=== PATIENT | female | born 1985 | race American Indian/Alaskan Native ===

== ENCOUNTER 2020-01-03 22:27 | Inpatient (IN) | payer MEDICAID ==
[~2020-01-03] VITALS: Ht 157.5 cm; Wt 82.5 kg
[2020-01-03 23:16] LABS: BASOPHILS % (AUTO) 0.5 % (0-1); EOSINOPHILS # (AUTO) 0.3 X10'3 (0-0.9); EOSINOPHILS % (AUTO) 3.2 % (0-6); HEMATOCRIT 40.2 % (35.0-45.0); HEMOGLOBIN 13.4 g/dl (12.0-16.0); LYMPHOCYTES % (AUTO) 35.7 % (21-51); MEAN CORPUSCULAR HEMOGLOBIN 30.8 PG (27.0-31.0); MEAN CORPUSCULAR HGB CONC 33.3 g/dL (33.0-36.5); MEAN CORPUSCULAR VOLUME 92.5 FL (78-98); MEAN PLATELET VOLUME 7.1 FL (7.4-10.4); MONOCYTES # (AUTO) 0.7 X10'3 (0-0.9); MONOCYTES % (AUTO) 7.9 % (2-12); NEUTROPHILS # (AUTO) 4.4 X10'3 (1.8-7.7); NEUTROPHILS % (AUTO) 52.7 % (42-75); PLATELET COUNT 340 X10'3 (140-440); RED BLOOD COUNT 4.35 X10'6 (4.20-5.60); RED CELL DISTRIBUTION WIDTH 13.3 % (11.5-14.5); WHITE BLOOD COUNT 8.4 X10'3 (4.5-11.0)
[2020-01-03 23:23] LABS: URINE HCG NEGATIVE (NEG)
[2020-01-03 23:27] LABS: CLARITY,URINE CLEAR (Clear); COLOR,URINE YELLOW (Yellow); GLUCOSE, URINE NEGATIVE (Neg); KETONES,URINE NEGATIVE (Neg); LEUKOCYTE ESTERASE ,URINE NEGATIVE (Neg); NITRITES, URINE NEGATIVE (Neg); OCCULT BLOOD,URINE NEGATIVE (Neg); PROTEIN,URINE TRACE mg/dl (Neg)
[2020-01-03 23:28] LABS: UA COLLECTION TYPE CLN CATCH MIDSTREAM
[2020-01-03 23:29] LABS: ACETAMINOPHEN 40.3 UG/ML (10-30); ALANINE AMINOTRANSFERASE 22 U/L (12-78); ALBUMIN 3.9 G/DL (3.4-5.0); ALKALINE PHOSPHATASE 103 IU/L (46-116); ANION GAP 9 (8-16); ASPARTATE AMINO TRANSFERASE 13 U/L (10-37); BILIRUBIN,TOTAL 1.4 MG/DL (0.1-1.0); BLOOD UREA NITROGEN 5 MG/DL (7-18); BUN/CREATININE RATIO 7.2 (6.6-38.0); CALCIUM 8.5 MG/DL (8.5-10.1); CHLORIDE 104 MMOL/L (99-107); CREATININE 0.69 MG/DL (0.40-0.90); ETHANOL < 0.010 GM/DL (0.0-0.010); GLUCOSE 95 MG/DL (70-104); POTASSIUM 3.2 MMOL/L (3.5-5.1); SODIUM 140 MMOL/L (135-145); TOTAL CARBON DIOXIDE 26.9 MMOL/L (24-32); TOTAL PROTEIN 7.9 G/DL (6.4-8.2); eGFR > 90 ML/MIN
[2020-01-03 23:29] LABS: URINE AMPHETAMINE SCREEN NEGATIVE (Neg); URINE BARBITUATE SCREEN NEGATIVE (Neg); URINE BENZODIAZEPINES SCREEN NEGATIVE (Neg); URINE CANNABINOID SCREEN NEGATIVE (Neg); URINE COCAINE SCREEN NEGATIVE (Neg); URINE METHADONE SCREEN NEGATIVE (Neg); URINE OPIATE SCREEN NEGATIVE (Neg); URINE PHENCYCLIDINE SCREEN NEGATIVE (Neg)
[2020-01-03 23:32] LABS: BACTERIA,URINE NONE SEEN /HPF (Neg); RBC,URINE 0-2 /HPF (0-2); SQUAMOUS EPITHELIAL CELL,UR MODERATE /LPF (FEW); WBC,URINE NONE SEEN /HPF (0-4)
--- NOTE | 2020-01-04 00:34 | NUR ---
CONTACTED POISON CONTROL FOR DR. UMAÑA CURRENTLY ON PHONE WITH POISON CONTROL
[2020-01-04] MEDS ORDERED: PERM60CR4 TP (00:38)
[2020-01-04] MEDS ORDERED: acetylcysteine sol. 200 MG/ML 4ml vial PO SCH (00:40)
[2020-01-04] MEDS ORDERED: acetylcysteine sol. 200 MG/ML 4ml vial PO ONE (00:40)
[2020-01-04] MEDS ORDERED: acetylcysteine 200mg/ml 30ml oral solution (vial) MC SCH (01:00)
[2020-01-04] MEDS ORDERED: acetaminophen 325mg tablet PO PRN ×2 (01:20)
[2020-01-04] MEDS ORDERED: metoclopramide 5 mg/ml inj IV PRN (01:20)
[2020-01-04] MEDS ORDERED: mag hydrox/Alum hydrox/simeth 30ml oral suspension PO PRN (01:20)
[2020-01-04] MEDS ORDERED: bisacodyl 10mg suppository rectal RC PRN (01:20)
[2020-01-04] MEDS ORDERED: ondansetron/PF 4mg/2ml inj IV PRN (01:20)
[2020-01-04] MEDS ORDERED: magnesium hydroxide 30ml (MOM) UD suspension PO PRN (01:20)
[2020-01-04] MEDS: normal saline 1000ml 1,000 ML IV SCH ×3 (01:55→23:32)
[2020-01-04 02:27] LABS: PARTIAL THROMBOPLASTIN TIME 28 SECONDS (22-32)
[2020-01-04] MEDS ORDERED: Permethrin Cream 60gm TP ONE (03:10)
[2020-01-04 03:45] VITALS: BP 145/104
[2020-01-04] MEDS: acetylcysteine 200mg/ml 30ml oral solution (vial) MC SCH ×4 (03:48→16:27)
--- NOTE | 2020-01-04 04:30 | NUR ---
pt arrived from er. has been oriented to the room. contact isolation for scabies. pt showered and been treated with permethrin cream. vss. received report from massiel drake prior to pt's arrival.
[2020-01-04 06:00] VITALS: BP_SYST 147; BP_SYST 149; BP_DIAS 76; BP_DIAS 90
--- NOTE | 2020-01-04 06:26 | NUR ---
Problems reprioritized. Patient report given, questions answered & plan of care reviewed with BARBARA HARMON.
--- NOTE | 2020-01-04 06:30 | NUR ---
Patient in room ORTHO 4012. I have received report from Marta JIMENEZ and had the opportunity to ask questions and assume patient care.
[2020-01-04] MEDS ORDERED: Permethrin Cream 60gm TP SCH (08:00)
[2020-01-04 10:35] VITALS: BP 141/83
--- NOTE | 2020-01-04 11:08 | NUR ---
PAGER ID: [phone] MESSAGE: [id number] Amalia Louise Do you want a STD urine? Maybe the buttock/back rash is Syphillus? Stacey [id number]
[2020-01-04] MEDS ORDERED: potassium CL 10mEq/100ml bag 100 ML IV PRN ×2 (14:15)
[2020-01-04] MEDS ORDERED: potassium Cl 20 mEq SR tablet PO PRN (14:15)
[2020-01-04] MEDS: potassium Cl 20 mEq SR tablet PO PRN ×3 (15:20→23:33)
--- NOTE | 2020-01-04 15:32 | NUR ---
Problems reprioritized. Patient report given, questions answered & plan of care reviewed with Laurel JIMENEZ.
[2020-01-04 17:48] LABS: ALANINE AMINOTRANSFERASE 17 U/L (12-78); ASPARTATE AMINO TRANSFERASE 9 U/L (10-37)
[2020-01-04 18:00] VITALS: BP 138/78
--- NOTE | 2020-01-04 18:33 | NUR ---
Problems reprioritized. Patient report given, questions answered & plan of care reviewed with Birdie JIMENEZ.
--- NOTE | 2020-01-04 19:08 | NUR ---
Returned call to poison control and spoke with Mary. Lab results reported as requested: ALT 17, AST 9 and INR 1.1. Verified patient received 5 dose of acetylcysteine and vital signs are stable. Mary recommended at this time to move patient to medical clearance and discontinue acetylcysteine. paged at this time to inform them of poison controls recommendation.
--- NOTE | 2020-01-04 19:54 | NUR ---
Dr. Jin medically cleared patient.
--- NOTE | 2020-01-04 19:55 | NUR ---
Spoke with MD Jin received order to follow recommendation of poison control and discontinue acetylcysteine. informed nursing that if patient can be seen by [facility] then he would follow up with patient for possible medical clearance tonight if not the dayshift MD will be able to.
[2020-01-04] MEDS: K and/or MAG REPLACEMENT MC SCH (19:58)
--- NOTE | 2020-01-04 20:50 | NUR ---
sent all medical records to [facility]. awaiting response.
[2020-01-04] MEDS ORDERED: temazepam 15mg capsule PO PRN (21:00)
[2020-01-04 22:00] VITALS: BP 138/83
--- NOTE | 2020-01-04 22:00 | NUR ---
Spoke with Katheryn from [facility]. All records have been received. Pt will be seen in am by Proof Coin Collector.
[2020-01-05 06:00] VITALS: BP 134/90
[2020-01-05 06:16] LABS: BASOPHILS # (AUTO) 0.1 X10'3 (0-0.2); BASOPHILS % (AUTO) 0.8 % (0-1); EOSINOPHILS # (AUTO) 0.4 X10'3 (0-0.9); EOSINOPHILS % (AUTO) 4.5 % (0-6); HEMOGLOBIN 11.7 g/dl (12.0-16.0); LYMPHOCYTES # (AUTO) 2.5 X10'3 (1.1-4.8); LYMPHOCYTES % (AUTO) 30.3 % (21-51); MEAN CORPUSCULAR HGB CONC 34.5 g/dL (33.0-36.5); MEAN CORPUSCULAR VOLUME 92.9 FL (78-98); MEAN PLATELET VOLUME 7.4 FL (7.4-10.4); MONOCYTES # (AUTO) 0.7 X10'3 (0-0.9); MONOCYTES % (AUTO) 8.2 % (2-12); NEUTROPHILS # (AUTO) 4.6 X10'3 (1.8-7.7); NEUTROPHILS % (AUTO) 56.2 % (42-75); PLATELET COUNT 277 X10'3 (140-440); RED BLOOD COUNT 3.66 X10'6 (4.20-5.60); RED CELL DISTRIBUTION WIDTH 13.1 % (11.5-14.5); WHITE BLOOD COUNT 8.1 X10'3 (4.5-11.0)
--- NOTE | 2020-01-05 06:41 | NUR ---
Patient in room ORTHO 4012B. I have received report from Birdie Berry RN and had the opportunity to ask questions and assume patient care.
[2020-01-05 06:56] LABS: ALANINE AMINOTRANSFERASE 15 U/L (12-78); ALBUMIN 2.8 G/DL (3.4-5.0); ALBUMIN/GLOBULIN RATIO 0.9 (1.1-1.5); ALKALINE PHOSPHATASE 72 IU/L (46-116); ANION GAP 8 (8-16); ASPARTATE AMINO TRANSFERASE 10 U/L (10-37); BILIRUBIN,TOTAL 0.9 MG/DL (0.1-1.0); BLOOD UREA NITROGEN 4 MG/DL (7-18); BUN/CREATININE RATIO 6.3 (6.6-38.0); CALCIUM 7.9 MG/DL (8.5-10.1); CHLORIDE 107 MMOL/L (99-107); CREATININE 0.63 MG/DL (0.40-0.90); GLUCOSE 81 MG/DL (70-104); LIPASE 86 U/L (73-393); POTASSIUM 3.5 MMOL/L (3.5-5.1); SODIUM 139 MMOL/L (135-145); TOTAL CARBON DIOXIDE 23.6 MMOL/L (24-32); eGFR > 90 ML/MIN
[2020-01-05 06:59] LABS: ACETAMINOPHEN < 2.0 UG/ML (10-30)
[2020-01-05] MEDS: normal saline 1000ml 1,000 ML IV SCH (07:18)
[2020-01-05] MEDS: K and/or MAG REPLACEMENT MC SCH (08:00)
[2020-01-05 10:00] VITALS: BP 145/90
--- NOTE | 2020-01-05 15:47 | NUR ---
DC INSTRUCTIONS GIVEN TO PT. NO QUESTIONS. IV REMOVED, CANULA INTACT, NO PROBLEMS. AWAITING PERSONNEL FROM [facility] FOR TRANSFER.
--- NOTE | 2020-01-05 16:21 | NUR ---
[facility] STAFF HERE TO TAKE PT. DURING PAPERWORK INTAKE PT BECAME ANGRY THAT SHE HAD TO GIVE UP HER PHONE AND THREW IT AT [facility] STAFF. ART SALAZAR WAS CALLED. [facility] SENIOR GEOLOGIST CAME UP AND TALKED TO PT AND DE-ESCLATED THE SITUATION. PT WAS TRANSFERRED VIA WHEELCHAIR WITH SECURITY AND [facility] STAFF IN STABLE CONDITION
[2020-01-05] MEDS ORDERED: NO HOME MEDS (17:23)
== END 2020-01-05 16:20 | DRG 817 ==
LOC: ER 22:28 → UNDOADMIN 01-04 01:18 → ED HOLD 01-04 01:18 → ORTHO 4S 01-04 03:38
PROVIDERS: ADMIT Family Medicine; ATTEND Internal Medicine
DX: T39.1X2A Poisoning by 4-Aminophenol derivatives, intentional self-harm, initial encounter (principal); E87.6 Hypokalemia; F32.9 Major depressive disorder, single episode, unspecified; Z59.0 Homelessness; Y92.89 Other specified places as the place of occurrence of the external cause; Z79.899 Other long term (current) drug therapy
CPT/HCPCS: 36415; 71045; 80053; 80305; 80320; 80329; 81001; 81025; 83690; 84132; 84443; 84450; 84460; 85025; 85610; 85730; 87081; 99285; G0378; J7030

== ENCOUNTER 2020-01-05 15:53 | Inpatient (IN) | payer MEDICAID ==
[~2020-01-05] VITALS: Ht 157.5 cm; Wt 82.5 kg
[~2020-01-05 15:53] MED LIST: PERM60CR4 TP
[2020-01-05] MEDS ORDERED: loperamide 2mg capsule PO PRN (16:00)
[2020-01-05] MEDS ORDERED: mag hydrox/Alum hydrox/simeth 30ml oral suspension PO PRN (16:00)
[2020-01-05] MEDS ORDERED: magnesium hydroxide 30ml (MOM) UD suspension PO PRN (16:00)
[2020-01-05] MEDS ORDERED: traZODone 50mg tablet PO PRN (16:00)
[2020-01-05] MEDS ORDERED: acetaminophen 325mg tablet PO PRN ×2 (16:00)
--- NOTE | 2020-01-05 16:44 | NUR ---
Admission note: Pt admitted to [place] for [facility] health today at 1620 on a 5150 for DTS. Pt attempted suicide by overdosing on sleeping medication and alcohol and stated "Im done". Pt reports feeling overwhelmed, depressed and alone. Pt has history of depression and anxiety. Pt is not on any medications. Pt was treated for scabies yesterday.
[2020-01-05] MEDS ORDERED: NO HOME MEDS (17:23)
--- NOTE | 2020-01-05 17:52 | NUR ---
HIGH RISK SUICIDE SEVERITY SCALE Patient has recent SA with overdose. Depressed, hopeless, and angry. Dr. Galvez informed. Will keep on q15m safety checks for now and put on LOS is needed.
--- NOTE | 2020-01-06 01:16 | NUR ---
Nursing Progress Note: Amalia Legal hold: 5150 Ex: 01/08/20 @ 1620 Client on involuntary status for DTS/DTO. Report received from KEYANA Abdul with use of SBAR. Why are they here: Pt attempted suicide by overdosing on sleeping medication (Tylenol PM) and alcohol and stated "Im done". Pt reports feeling overwhelmed, depressed and alone. She states that she has been feeling suicidal and depressed for about a week. Pt has history of depression and anxiety. Pt is not currently on any medications. Assessment What has happened this shift: Pt was visible int he unit during shift change. She appeared angry and unhappy to be here. She later asked to have her phone so she could get some numbers. She did get some numbers from her phone and immediately started talking to people. She was observed talking very loudly and appeared be very angry about being here. She continues to be paranoid, stating that we went through her stuff and we have not right. She also talks about how the gerber virus is all a big lie but doesnt understand how come all the staff have masks but the patients dont. She also continues to voice her hatred towards white people and president [employer]. She allowed this short story writer to obtain most of her vital signs but would not answer any questions for her physical and mental health assessment. She stated they already got them earlier today, are you just going to keep waking me up? Explained to patient that they had to be obtained every 12 hours and she becomes argumentative. Stating Well if I say no, thats just going to be another reason for you to keep me here longer. She did not take any medication for me as she did not have any scheduled and she did not ask for any PRN. She did come out of her room a couple more times but was isolative for the most part. 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 Were meds taken: None scheduled, did not ask for any prns Any med S/E: N/A Mental Status Exam Appearance: Middle aged women somewhat disheveled wearing green unit scrubs Eye contact: Direct, tense Behavior: Hostile, resistive to care, uncooperative, argumentative Speech: Normal rate and rhythm Mood: Appears angry and anxious, irritable Affect: Blunted Thought process: Circumstantial, paranoid Thought Content: Talking to her [place], not wanting to be here Cognition: Alert and oriented X3 Insight: Poor Judgment: Poor Interventions PRN's used: None Therapeutic interventions: 1:1 assessment, attempted establishment of rapport, medication administration/education/monitoring, active listening, attempted re-assurance and therapeutic conversation, as well as reality orientation, encouraged fluids and nutrition, I & Os, maintained a safe and therapeutic environment, Q 15 minute safety checks. Restraints/Seclusion/Emergency Medications: None Justification of Continued Inpatient Treatment: Patient needs interruption of current crisis and medication stabilization to prevent reoccurring hospitalizations
--- NOTE | 2020-01-06 14:26 | NUR ---
PSYCHOSOCIAL ASSESSMENT Amalia is a 34 y/o single female who was placed on a 5150 for danger to self after she attempted suicide via overdose on tylenol PM and alcohol. She reported she overdosed so she could "go to sleep and not wake up". This was her 3rd suicide attempt in the past year. At the start of the interview, Amalia was initially agitated about not being able to have her phone. She quickly calmed down and was talkative with rapid, pressured speech. She was quite circumstantial when answering questions. She was paranoid at times and initially would not tell commercial underwriter what city in [place] she had lived in. Amalia reported she has been living out of her car since May. She was working in [place] at [employer], [employer], and [employer]. Prior to May she was living in [place] with an aunt and working at [employer]. 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 She reported she had a falling out with her aunt a couple weeks ago. mAalia reported multiple stressors including financial stress. She reported she has a gambling addiction and had a recent relapse. She reported she has placed a ban on herself at various casinos in order to keep herself from gambling, however, some casinos still allowed her to go inside after doing so. Amlaia reported she drove up to [place] this last week because she had been there as a child and had good memories. She ran out of gas and was living in her car and it was quite hot. She reported she had not been sleeping and took tylenol PM with alcohol in a suicide attempt, "I was done". She called police on herself who took her to [facility] where she was initially admitted for the tylenol overdose and later placed on a 5150. Amalia reported she was treated for anxiety when she lived in [place], however, she could not recall the name of the medication she had been on. Amalia reported she would like to return to [place] and hopes that her friend, Tad, could wire her money to get gas to get to [place]. She reported her car is currently at the [employer] in [place]. Amalia would like to get a job and find housing. JOHN Hannon Addendum: 01/06/20 at 1426 by Babita SCHNEIDER Amended: Links added.
--- NOTE | 2020-01-06 16:17 | NUR ---
Nursing Progress Note: Amalia Legal hold: 5150 Ex: 01/08/20 @ 1620 Client on involuntary status for DTS/DTO. Report received from Cathy RIDLEY Why are they here: Pt attempted suicide by overdosing on sleeping medication (Tylenol PM) and alcohol and stated "Im done". Pt reports feeling overwhelmed, depressed and alone. She states that she has been feeling suicidal and depressed for about a week. Pt has history of depression and anxiety. Pt is not currently on any medications. Assessment What has happened this shift: Pt was in bed resting to begin the shift. She refused vital signs and threw papers in her room. Client was redirected by this check writer and she was no issue until breakfast when she insulted a staff member and forcefully slammed her breakfast tray down and returned to her room with angry affect. Again, client was given a 1:1 and it was explained to her that she needed to work on her impulse control and that she could not intimidate staff while a member of this unit. Client had a visit from Back Panel Padder today and then went back to bed and remains there as of this writing at 1055 hours. Client was visited by the Hospitalist this am and she was amicable to exam. Client then returned to her bed to rest. Client came to the Community room for lunch and then returned to her room to rest. Client lacks medication orders other than PRN's and would benefit from standing orders. She has spent the majority of this shift isolated to her room. She appears less aggressive and less agitated towards the end of this shift. S/I, H/I: Unable to assess A/VH: Unable to assess, pt did not appear to be responding to internal stimuli Sleep: ADL's: Independent Group attendance: no Were meds taken: N/A Any med S/E: N/A Mental Status Exam Appearance: Middle aged women somewhat disheveled wearing green unit scrubs Eye contact: Direct, tense Behavior: Hostile, resistive to care, uncooperative, argumentative Speech: Normal rate and rhythm Mood: Appears angry and anxious, irritable Affect: Blunted Thought process: Circumstantial, paranoid Thought Content: Feels she has no reason to be held here. Cognition: Alert and oriented X3 Insight: Poor Judgment: Poor Interventions PRN's used: None Therapeutic interventions: 1:1 assessment, attempted establishment of rapport, medication administration/education/monitoring, active listening, attempted re-assurance and therapeutic conversation, as well as reality orientation, encouraged fluids and nutrition, I & Os, maintained a safe and therapeutic environment, Q 15 minute safety checks. Restraints/Seclusion/Emergency Medications: None Justification of Continued Inpatient Treatment: Patient needs interruption of current crisis and medication stabilization to prevent reoccurring hospitalizations
--- NOTE | 2020-01-06 16:54 | NUR ---
Pt was in bed to begin the shift. She was hostile when approached for assessment and refused. She also refused vital signs and scattered papers all over her room. She was redirected with success and picked up her papers and went back to sleep in her bed. She woke for breakfast and again was hostile and slammed her breakfast tray down and went to bed. Client woke, placed several phone calls and then rested until she was spoken to regarding her behaviors and statements directed towards staff. She appeared to accept the guidance and has not had any outbursts for the remainder of this shift. She is guarded and suspicious of staff and has made several veiled threats towards staff this am. The behaviors have subsided this afternoon and client is more amicable to unit routine. S/I, H/I: Unable to assess, pt would not answer A/VH: Unable to assess, pt did not appear to be responding to internal stimuli Sleep: rested frequently during this shift. ADL's: Independent Group attendance: Were meds taken: No Any med S/E: N/A Mental Status Exam Appearance: Middle aged women somewhat disheveled wearing green unit scrubs Eye contact: Direct, tense Behavior: Hostile, resistive to care, uncooperative, argumentative Speech: Normal rate and rhythm Mood: Appears angry and anxious, irritable Affect: Blunted Thought process: Circumstantial, paranoid Thought Content: Talking to her [place], not wanting to be here Cognition: Alert and oriented X3 Insight: Poor Judgment: Poor Interventions PRN's used: None Therapeutic interventions: 1:1 assessment, attempted establishment of rapport, medication administration/education/monitoring, active listening, attempted re-assurance and therapeutic conversation, as well as reality orientation, encouraged fluids and nutrition, I & Os, maintained a safe and therapeutic environment, Q 15 minute safety checks. Restraints/Seclusion/Emergency Medications: None Justification of Continued Inpatient Treatment: Patient needs interruption of current crisis and medication stabilization to prevent reoccurring hospitalizations
[2020-01-06 19:00] VITALS: BP 143/63
--- NOTE | 2020-01-07 01:17 | NUR ---
Nursing Progress Note: Amalia Legal hold: 5150 Ex: 01/08/20 @ 1620 Client on involuntary status for DTS/DTO. Report received from KEYANA Abdul with use of SBAR. Why are they here: Pt attempted suicide by overdosing on sleeping medication (Tylenol PM) and alcohol and stated "Im done". Pt reports feeling overwhelmed, depressed and alone. She states that she has been feeling suicidal and depressed for about a week. Pt has history of depression and anxiety. Pt is not currently on any medications. Assessment What has happened this shift: Pt was seen on the phone out of her room. She continues to use foul language and voice her hatred towards white people, the staff here in general, and also hates the fact that she is here. Over heard her say to whoever she was talking to that she had to get a hold of her resighini. Believes its wrong that she doesnt have access to her phone. When this contract technical writer approached pt, she was amicable for the most part, but when she asked about her hold and learned that she would be able to leave for a couple of days she started to get hostile again. She states Well if I get to leave over the weekend, I hope that I can get a hold of my friend. She also wanted to know when she would be able to see a oncology social work again. She spent quite some time with ABDOUL Nunez and when she came out she went straight to be. She would like to have pictures taken of her rash and theres a new order for Calamine lotion TID prn. Will endorse with AM shift as Katey would like for her to use this. Pt remained in her room for the rest of the evening and did not engage with this contract technical writer or any other staff. Did not make any more phone calls. 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 supervisor Were meds taken: None Any med S/E: N/A Mental Status Exam Appearance: Middle aged women somewhat disheveled wearing green unit scrubs Eye contact: Direct, Fair Behavior: Resistive to care, guarded, withdrawn Speech: Normal rate and rhythm Mood: Angry, irritable Affect: Blunted Thought process: Linear Thought Content: Discharge, talking on the phone trying to get a hold of her resighini, wanting to talk to oncology social work about her discharge Cognition: Alert and oriented X3 Insight: Poor Judgment: Poor Interventions PRN's used: None Therapeutic interventions: 1:1 assessment, attempted establishment of rapport, medication administration/education/monitoring, active listening, attempted re-assurance and therapeutic conversation, as well as reality orientation, encouraged fluids and nutrition, I & Os, maintained a safe and therapeutic environment, Q 15 minute safety checks. Restraints/Seclusion/Emergency Medications: None Justification of Continued Inpatient Treatment: Patient needs interruption of current crisis and medication stabilization to prevent reoccurring hospitalizations
[2020-01-07] MEDS ORDERED: calamine LOTION TP PRN (07:00)
[2020-01-07 08:00] VITALS: BP 114/61
--- NOTE | 2020-01-07 09:14 | NUR ---
Intervention: Pt shouting in her room at [employer]. This nurse intervened. Pt complaining about her "dirty sheets" that have been replaced twice this morning with clean sheets. Pt points out tiny stains and throws the linen on the floor. Pt refuses any new sheets or blankets. Pt then continues to curse about "White people" and her "Indigenous people" and "My [place]". Explained to pt to calm herself down and cooperate for the rest of her hold so she can be discharged. Encouraged pt to speak with her MD about starting her on mood stabilizers. Pt lays down for a few minutes and gets up continuing to shout and curse. Pt offered po Ativan and pt kept grabbing her nurse Handsels hand. Told pt to stop grabbing her nurses hand. PT took the oral medication and laid down.
[2020-01-07] MEDS: LORazepam 1 MG tablet PO PRN ×2 (09:25→17:33)
--- NOTE | 2020-01-07 13:24 | NUR ---
Nursing Progress Note: Legal hold: 5150 Ex: 01/08/20 @ 1620 Client on involuntary status for DTS/DTO. Report received from Amelia RIDLEY Why are they here: Pt attempted suicide by overdosing on sleeping medication (Tylenol PM) and alcohol and stated "Im done". Pt reports feeling overwhelmed, depressed and alone. She states that she has been feeling suicidal and depressed for about a week. Pt has history of depression and anxiety. Pt is not currently on any medications. Assessment What has happened this shift: Pt was asleep at change of shift. She was awakened easily and was able to make it into the group room for breakfast. Client became irritated and slammed her tray down and returned to her room. Spoe with client about taking a shower. Client states she will if she is given clean sheets and if someone cleans the bathroom again. SHe reporrts seeing faaces on her sheets. Client was given new sheets and fresh sccrubs. She took a shower. When this nurse returned from break client was in the hallway yelling at staff. Proceeded to get her PRN ativan. Client grabbed the medication cup out of this nurse's hand and crushed it. Retrieved the medication and medication cup form client. Asked client to make sure she took the medication. She took the Ativan and washed it don iwth water. She slept unitl early afternooon and then stayed fairly close to her room continuously brushing her hair. S/I, H/I: Unable to assess A/VH: Unable to assess, pt did not appear to be responding to internal stimuli Sleep: ADL's: Independent Group attendance: no Were meds taken: N/A Any med S/E: N/A Mental Status Exam Appearance: Middle aged women somewhat disheveled wearing green unit scrubs Eye contact: Direct, tense Behavior: Hostile, resistive to care, uncooperative, argumentative Speech: Normal rate and rhythm Mood: Appears angry and anxious, irritable Affect: Blunted Thought process: Circumstantial, paranoid Thought Content: Feels she has no reason to be held here. Cognition: Alert and oriented X3 Insight: Poor Judgment: Poor Interventions PRN's used: Ativan Therapeutic interventions: 1:1 assessment, attempted establishment of rapport, medication administration/education/monitoring, active listening, attempted re-assurance and therapeutic conversation, as well as reality orientation, encouraged fluids and nutrition, I & Os, maintained a safe and therapeutic environment, Q 15 minute safety checks. Restraints/Seclusion/Emergency Medications: None Justification of Continued Inpatient Treatment: Patient needs interruption of current crisis and medication stabilization to prevent reoccurring hospitalizations
[2020-01-07] MEDS: lurasidone 20mg tablet PO SCH (17:33)
[2020-01-07 19:48] VITALS: BP 119/67
--- NOTE | 2020-01-08 00:08 | NUR ---
Nursing Progress Note: Amalia Legal hold: 5150 Ex: 01/08/20 @ 1620 Client on involuntary status for DTS/DTO. Report received from KEYANA Abdul with use of SBAR. Why are they here: Pt attempted suicide by overdosing on sleeping medication (Tylenol PM) and alcohol and stated "Im done". Pt reports feeling overwhelmed, depressed and alone. She states that she has been feeling suicidal and depressed for about a week. Pt has history of depression and anxiety. Pt is not currently on any medications. Assessment What has happened this shift: Pt was initially pacing the isles during shift change, then later retired to her room to sleep. She remained in her room and there was no agitation noted. Pt was sleepy but cooperative for physical assessment. Denies any S/I, H/I and when asked about depression or anxiety she says so so with her hand. Offered patient a warm blanket and she states only if its a clean one. Pt remained in her room for the remainder of the evening and there was no inappropriate behavior as per this note. S/I, H/I: Denies A/VH: Denies Sleep: Currently sleeping, see sleep assessment for total hours ADL's: Independent Group attendance: None during second shift supervisor Were meds taken: None Any med S/E: N/A Mental Status Exam Appearance: Middle aged women somewhat disheveled wearing green unit scrubs Eye contact: Direct, minimal Behavior: Fatigued, more cooperative today than other days, isolative Speech: Normal rate and rhythm, minimal Mood: Mild anxiety, depressed, paranoid Affect: Blunted Thought process: Linear Thought Content: Discharge, she was sleeping for most of the evening and night Cognition: Alert and oriented X3 Insight: Poor Judgment: Poor Interventions PRN's used: None Therapeutic interventions: 1:1 assessment, attempted establishment of rapport, medication administration/education/monitoring, active listening, attempted re-assurance and therapeutic conversation, as well as reality orientation, encouraged fluids and nutrition, I & Os, maintained a safe and therapeutic environment, Q 15 minute safety checks. Restraints/Seclusion/Emergency Medications: None Justification of Continued Inpatient Treatment: Patient needs interruption of current crisis and medication stabilization to prevent reoccurring hospitalizations
[2020-01-08 07:05] VITALS: BP 137/86
[2020-01-08] MEDS: LORazepam 1 MG tablet PO PRN ×2 (07:16→13:33)
--- NOTE | 2020-01-08 15:33 | NUR ---
Nursing Progress Note: Legal hold: 5150 Ex: 01/08/20 @ 1620 Client on involuntary status for DTS/DTO. Report received from Amelia RIDLEY Why are they here: Pt attempted suicide by overdosing on sleeping medication (Tylenol PM) and alcohol and stated "Im done". Pt reports feeling overwhelmed, depressed and alone. She states that she has been feeling suicidal and depressed for about a week. Pt has history of depression and anxiety. Pt is not currently on any medications. Assessment What has happened this shift: Pt was asleep at change of shift. She was awakened easily and was able to make it into the group room for breakfast. She presented with anxiety around going home and was given Ativan with a good result. She was up for breakfast and able to finish her meal in a pleasant manner. She carried on a conversation with a fellow client. She was later seen crouched down on the floor in the hallway attempting to pee on the floor. She was quickly redirected by myself and an aide to a bathroom. When she came out she asked for a brief stating she has issues with incontinence. She continues to communicate by using sticky notes that she keeps in her pocket. She presents as obstinate and irritable. Was able to encourage client to participate in some yoga. She was able to relax and smiled while practicing yoga. S/I, H/I: Client not answering A/VH: Appears to be responding to internal stimuli and has some paranoia. Sleep: no naps ADL's: Independent Group attendance: no Were meds taken: N/A Any med S/E: N/A Mental Status Exam Appearance: Middle aged women somewhat disheveled wearing green unit scrubs Eye contact: Direct, tense Behavior: Hostile but cooperative Speech: Normal rate and rhythm. Poverty Mood: Appears angry and anxious, irritable Affect: Blunted Thought process: Circumstantial, paranoid Thought Content: Feels she has no reason to be held here. Cognition: Alert and oriented X3 Insight: Poor Judgment: Poor Interventions PRN's used: Ativan Therapeutic interventions: 1:1 assessment, attempted establishment of rapport, medication administration/education/monitoring, active listening, attempted re-assurance and therapeutic conversation, as well as reality orientation, encouraged fluids and nutrition, I & Os, maintained a safe and therapeutic environment, Q 15 minute safety checks. Restraints/Seclusion/Emergency Medications: None Justification of Continued Inpatient Treatment: Patient needs interruption of current crisis and medication stabilization to prevent reoccurring hospitalizations
[2020-01-08] MEDS: lurasidone 20mg tablet PO SCH (17:23)
[2020-01-08 20:16] VITALS: BP 115/61
[2020-01-08] MEDS: oxybutynin 5mg tablet PO SCH (20:33)
--- NOTE | 2020-01-09 01:41 | NUR ---
Nursing Progress Note: Legal hold: 5150 Ex: 01/08/20 @ 1620 Client on involuntary status for DTS/DTO. Report received from Franko RIDLEY Why are they here: Pt attempted suicide by overdosing on sleeping medication (Tylenol PM) and alcohol and stated "Im done". Pt reports feeling overwhelmed, depressed and alone. She states that she has been feeling suicidal and depressed for about a week. Pt has history of depression and anxiety. Pt is not currently on any medications. Assessment What has happened this shift: Pt was in her room at shift change talking on the phone. She isolated most of the shift. up for snacks then back to her room. Pt would not answer when asked about SI/HI. Pt on vol status and no sign of paranoid Bx or internal stimuli noted. S/I, H/I: Client not answering A/VH: Appears to be responding to internal stimuli and has some paranoia. Sleep: no naps ADL's: Independent Group attendance: no Were meds taken: N/A Any med S/E: N/A Mental Status Exam Appearance: Middle aged women somewhat disheveled wearing green unit scrubs Eye contact: Direct, tense Behavior: Hostile but cooperative Speech: Normal rate and rhythm. Poverty Mood: Appears angry and anxious, irritable Affect: Blunted Thought process: Circumstantial, paranoid Thought Content: Feels she has no reason to be held here. Cognition: Alert and oriented X3 Insight: Poor Judgment: Poor Interventions PRN's used: Ativan Therapeutic interventions: 1:1 assessment, attempted establishment of rapport, medication administration/education/monitoring, active listening, attempted re-assurance and therapeutic conversation, as well as reality orientation, encouraged fluids and nutrition, I & Os, maintained a safe and therapeutic environment, Q 15 minute safety checks. Restraints/Seclusion/Emergency Medications: None Justification of Continued Inpatient Treatment: Patient needs interruption of current crisis and medication stabilization to prevent reoccurring hospitalizations
[2020-01-09 08:00] VITALS: BP 112/60
[2020-01-09] MEDS: oxybutynin 5mg tablet PO SCH ×3 (08:43→20:34)
--- NOTE | 2020-01-09 09:07 | NUR ---
Provided Amalia with the phone # to [employer] in [place] so she can check on her car. Also provided her with an Emergency [facility] applications in [facility]. JOHN Hannon
--- NOTE | 2020-01-09 11:54 | NUR ---
Amalia wrote automotive service writer a note and give it to Dr Covington. Note stated that the phone # for [facility] did not work and that the detention in [place] is not taking anyone from out of town. Spoke to Amalia and informed her how to dial the phone # for [facility] (she previously had used an out of town area code to dial it). Later she stated she successfully called and her car is still there and fine. Amalia was irritable and agitated throughout the interactions. She yelled at automotive service writer, "what are you going to do with me...you're paid to do something with me". Asked her where she would like to go upon discharge and she again stated, "what are you going to do with me?". Explained that it depends on where she wants to go. She stated even if she gets to her car in [place] it is out of gas and she has no money. She complained about the detention information resources director gave her. Reminded her that she previously requested information on shelters in [facility] which automotive service writer provided her with. She continued to yell at automotive service writer and automotive service writer left the conversation by exiting her room. JOHN Hannon
--- NOTE | 2020-01-09 14:43 | NUR ---
Francis: Pt ambulates past security in the hallway by room [address] while they are monitoring a different pt, she spits at the security officers and makes some comment at them angrily. After the intervention with the aggressive pt this nurse speaks with Amalia. She states it is a "Kenaitze ritual" to spit at security. Explained to pt that is is unacceptable and will not be tolerated and there is no marshall rituals to spit at security. PT states "You dont know my standing rock". Pt escorted back to her room and told to stay in there until she can come out and not spit at people.
[2020-01-09] MEDS: lurasidone 20mg tablet PO SCH (17:22)
[2020-01-09 20:00] VITALS: BP 126/79
--- NOTE | 2020-01-10 01:01 | NUR ---
Nursing Progress Note: Legal hold: 5150 Ex: 01/08/20 @ 1620 Client on involuntary status for DTS/DTO. Report received from Franko RIDLEY Why are they here: Pt attempted suicide by overdosing on sleeping medication (Tylenol PM) and alcohol and stated "Im done". Pt reports feeling overwhelmed, depressed and alone. She states that she has been feeling suicidal and depressed for about a week. Pt has history of depression and anxiety. Pt is not currently on any medications. Assessment What has happened this shift: Pt was up and on the the unit at the start of shift. Pt was agitated most of shift arguing with some one on the phone.She told this curriculum writer to quit spying on her and told the person on the phone there all spies here watching her. S/I, H/I: Client not answering A/VH: Appears to be responding to internal stimuli and has some paranoia. Sleep: no naps ADL's: Independent Group attendance: no Were meds taken: N/A Any med S/E: N/A Mental Status Exam Appearance: Middle aged women somewhat disheveled wearing green unit scrubs Eye contact: Direct, tense Behavior: Hostile but cooperative Speech: Normal rate and rhythm. Poverty Mood: Appears angry and anxious, irritable Affect: Blunted Thought process: Circumstantial, paranoid Thought Content: Feels she has no reason to be held here. Cognition: Alert and oriented X3 Insight: Poor Judgment: Poor Interventions PRN's used: Ativan Therapeutic interventions: 1:1 assessment, attempted establishment of rapport, medication administration/education/monitoring, active listening, attempted re-assurance and therapeutic conversation, as well as reality orientation, encouraged fluids and nutrition, I & Os, maintained a safe and therapeutic environment, Q 15 minute safety checks. Restraints/Seclusion/Emergency Medications: None Justification of Continued Inpatient Treatment: Patient needs interruption of current crisis and medication stabilization to prevent reoccurring hospitalizations
[2020-01-10 07:00] VITALS: BP 119/62
[2020-01-10] MEDS: oxybutynin 5mg tablet PO SCH ×3 (08:02→20:10)
--- NOTE | 2020-01-10 14:12 | NUR ---
Eating well, 75-100% PO Intake regular diet. Last BM 01/06, however pt RN notes pt refusing assessment and does have prn bowel care available if needed. Initial: 1. continue regular diet 2. bowel care as needed 3. weekly weights Addendum: 01/10/20 at [address] Amended: Links added.
[2020-01-10] MEDS: lurasidone 20mg tablet PO SCH (18:03)
--- NOTE | 2020-01-10 18:06 | NUR ---
Nursing Progress Note: Legal hold: 5150 Ex: 01/08/20 @ 1620 Client on involuntary status for DTS/DTO. Report received from Amelia RIDLEY Why are they here: Pt attempted suicide by overdosing on sleeping medication (Tylenol PM) and alcohol and stated "Im done". Pt reports feeling overwhelmed, depressed and alone. She states that she has been feeling suicidal and depressed for about a week. Pt has history of depression and anxiety. Pt is not currently on any medications. Assessment What has happened this shift: Received patient sleeping at shift change. Patient awakens and comes down for breakfast and medications. Patient takes medications each time then throws med cup on the floor. Later in the morning patient is kneeling in her doorway praying. Later she is looking at puzzle books. Patient states that she needs to check her cell phone as she is trying to get money wired to her for discharge. Patient appears angry and agitated for most of the shift. S/I, H/I: Client not answering A/VH: Appears to be responding to internal stimuli. Sleep: no naps ADL's: Independent Group attendance: no Were meds taken: N/A Any med S/E: N/A Mental Status Exam Appearance: female in unit attire. Eye contact: Direct, intense Behavior: Withdrawn and isolative. Speech: Normal rate and rhythm. Poverty Mood: Dysthymic. Affect: Blunted Thought process: Circumstantial, paranoid Thought Content: Wire transfer for discharge. Cognition: Alert and oriented X3 Insight: Poor Judgment: Poor Interventions PRN's used: Ativan Therapeutic interventions: 1:1 assessment, attempted establishment of rapport, medication administration/education/monitoring, active listening, attempted re-assurance and therapeutic conversation, as well as reality orientation, encouraged fluids and nutrition, I & Os, maintained a safe and therapeutic environment, Q 15 minute safety checks. Restraints/Seclusion/Emergency Medications: None Justification of Continued Inpatient Treatment: Patient needs interruption of current crisis and medication stabilization to prevent reoccurring hospitalizations
[2020-01-10 19:36] VITALS: BP 124/86
--- NOTE | 2020-01-11 00:11 | NUR ---
Nursing Progress Note: Legal hold: voluntary Client on voluntary status Report received from Franko RIDLEY Why are they here: Pt attempted suicide by overdosing on sleeping medication (Tylenol PM) and alcohol and stated "Im done". Pt reports feeling overwhelmed, depressed and alone. She states that she has been feeling suicidal and depressed for about a week. Pt has history of depression and anxiety. Pt is not currently on any medications. Assessment What has happened this shift: Pt sitting in her room at change of shift making phone calls to family. Pt doesnt answer some questions. Appears to be responding to SI but doesnt answer when asked. Pt asked to take a shower and then states if her family calls to let her know right away, nobody called for her. Pt isolates to her room for the duration of the shift. S/I, H/I: Client not answering A/VH: Appears to be responding to internal stimuli. Sleep: no naps ADL's: Independent Group attendance: no Were meds taken: N/A Any med S/E: N/A Mental Status Exam Appearance: female in scrubs Eye contact: Direct, intense Behavior: Withdrawn and isolative. Speech: Normal rate and rhythm. Poverty Mood: Dysthymic. Affect: Blunted Thought process: Circumstantial, paranoid Thought Content: wants to talk to her family. Cognition: Alert and oriented X3 Insight: Poor Judgment: Poor Interventions PRN's used: none Therapeutic interventions: 1:1 assessment, attempted establishment of rapport, medication administration/education/monitoring, active listening, attempted re-assurance and therapeutic conversation, as well as reality orientation, encouraged fluids and nutrition, I & Os, maintained a safe and therapeutic environment, Q 15 minute safety checks. Restraints/Seclusion/Emergency Medications: None Justification of Continued Inpatient Treatment: Patient needs interruption of current crisis and medication stabilization to prevent reoccurring hospitalizations
[2020-01-11] MEDS: oxybutynin 5mg tablet PO SCH ×3 (07:52→20:43)
[2020-01-11 08:47] VITALS: BP 107/61
[2020-01-11] MEDS ORDERED: TRAZ-251 PO (13:48)
[2020-01-11] MEDS ORDERED: OXYB5TAB16 PO (13:48)
[2020-01-11] MEDS ORDERED: LURA40TA3 PO (13:48)
--- NOTE | 2020-01-11 17:19 | NUR ---
Nursing Progress Note: Legal hold: voluntary Client on involuntary status for DTS/DTO. Report received from KEYANA Garcia Why are they here: Pt attempted suicide by overdosing on sleeping medication (Tylenol PM) and alcohol and stated "Im done". Pt reports feeling overwhelmed, depressed and alone. She states that she has been feeling suicidal and depressed for about a week. Pt has history of depression and anxiety. Pt is not currently on any medications. Assessment What has happened this shift: Patient awake for morning medication and breakfast. Patient reports that she has 40.00 that was wired to her and she needs to use her phone to check, her need was net met right away and patient escalated I guess Ill just have to get myself fing kicked out of here. Assured patient that she would be able to use it this afternoon and she calmed down. S/I, H/I: Client not answering A/VH: Appears to be responding to internal stimuli. Sleep: no naps ADL's: Independent Group attendance: no Were meds taken: Yes. Any med S/E: N/A Mental Status Exam Appearance: Freshly showered female in unit attire. Eye contact: Direct, intense Behavior: Withdrawn and isolative. Speech: Normal rate and rhythm. Poverty Mood: Dysthymic. Affect: Blunted Thought process: Circumstantial, paranoid Thought Content: Discharge. Cognition: Alert and oriented X3 Insight: Poor Judgment: Poor Interventions PRN's used: Therapeutic interventions: 1:1 assessment, attempted establishment of rapport, medication administration/education/monitoring, active listening, attempted re-assurance and therapeutic conversation, as well as reality orientation, encouraged fluids and nutrition, I & Os, maintained a safe and therapeutic environment, Q 15 minute safety checks. Restraints/Seclusion/Emergency Medications: None Justification of Continued Inpatient Treatment: Patient needs interruption of current crisis and medication stabilization to prevent reoccurring hospitalizations
[2020-01-11] MEDS: lurasidone 20mg tablet PO SCH (17:57)
[2020-01-11 19:47] VITALS: BP 121/91
--- NOTE | 2020-01-11 22:56 | NUR ---
Nursing Progress Note: Legal hold: voluntary Client on involuntary status for DTS/DTO. Report received from KEYANA Soto Why are they here: Pt attempted suicide by overdosing on sleeping medication (Tylenol PM) and alcohol and stated "Im done". Pt reports feeling overwhelmed, depressed and alone. She states that she has been feeling suicidal and depressed for about a week. Pt has history of depression and anxiety. Pt is not currently on any medications. Assessment What has happened this shift: pt was concerned about getting a letter from her job on her phone tonight and wanted to check it. She states her car was left in [place] and its her understanding she is going to get a gas card and bus ticket from us to go picking machine operator helper her car in [place]. She states she will need information from us concerning her stay for her job. Pt states she was out visiting places her family used to go to and that's how she ended up in [place]. Pt states she is hoping to get help with housing when [place] gets [place] to [place]. S/I, H/I: Client denies A/VH: client denies Sleep:see sleep hours ADL's: Independent Group attendance: no Were meds taken: Yes. Any med S/E: N/A Mental Status Exam Appearance: patient is adequately groomed and dressed appropriately for unit wearing green scrubs. Eye contact: good Behavior: Withdrawn and isolative. Speech: Normal rate and rhythm. Mood: anxious Affect: Blunted Thought process: Circumstantial, paranoid Thought Content: future oriented, planning to discharge Cognition: Alert and oriented X3 Insight: Poor Judgment: Poor Interventions PRN's used: Therapeutic interventions: 1:1 assessment, attempted establishment of rapport, medication administration/education/monitoring, active listening, attempted re-assurance and therapeutic conversation, as well as reality orientation, encouraged fluids and nutrition, I & Os, maintained a safe and therapeutic environment, Q 15 minute safety checks. Restraints/Seclusion/Emergency Medications: None Justification of Continued Inpatient Treatment: Patient needs interruption of current crisis and medication stabilization to prevent reoccurring hospitalizations
[2020-01-12 07:58] VITALS: BP 107/61
[2020-01-12] MEDS: oxybutynin 5mg tablet PO SCH ×2 (08:02→13:26)
--- NOTE | 2020-01-12 08:55 | NUR ---
DISCHARGE PLANNING Amalia is discharging today. She is taking [employer] bus to [place] where her car is located. Provided her with $40 from [employer] to purchase bus ticket and purchase gas (car is out of gas) to drive to [place]. JOHN Hannon
--- NOTE | 2020-01-12 10:00 | NUR ---
Group Therapy: Process Group This Clinicians goal for this process group were as follows: (1) Ask scaling questions about patients current anxiety, depression, and irritability symptoms as a check-in. (2) Provide psychoeducation on grounding activities as a means to reduce the acuity of unwanted mental health symptoms. (3) Introduce mandalas as one such activity for group participation within the milieu. (4) Check-in with patients during the coloring activity to reinforce the importance of engaging in adaptive grounding activities. Patient identified experiencing the following levels of anxiety, depression, and anger/irritability while present in the group milieu. Anxiety: 07/25 Depression: 06/24 Anger/irritability: 07/25 Patient presented as open and cooperative within the group milieu. Patient was dressed in green hospital scrubs within the group milieu. Patient's thought content was clear and concrete. Patient's thought process was clear, coherent, and linear. This Clinician did not observe Patient responding to any internal stimuli during session. Patient was verbally engaged and nonobtrusive during the process group. She was present all throughout the process group, only leaving briefly to consult with her pediatric social worker, before returning. Patient presented in calm, euthymic mood with congruent affect during session. This Clinician complimented Patient on the coloring that she did on her mandala, to which Client responded, "I have done four years in art." This Clinician encouraged Patient to consider coloring as a grounding activity that may appeal to her due to her interest in art. Patient also responded that she had done journaling in the past to express her feelings and she found that activity to be beneficial to her. Luke Jones MA, BUILDER OPERATOR Addendum: 01/12/20 at 1147 by Luke Jones SS Amended: Links added.
--- NOTE | 2020-01-12 12:52 | NUR ---
Faxed forms completed by Dr Covington to Amalia's employer, [employer] (fax# [phone]). Provided Amalia a copy. JOHN Hannon
--- NOTE | 2020-01-12 14:36 | NUR ---
Nursing Discharge Note Pt discharged from [facility] at 1400, ambulatory to the bus station for ride to [place]. Pt in calm mood with constricted affect. Pt in no physical or emotional distress, denies SI and has been improving since admission. Pt understands discharge instructions and does not want nicotine replacement.
== END 2020-01-12 14:00 | disposition home or self-care (01) | DRG 753 ==
LOC: ADULT MH 15:53
PROVIDERS: ADMIT Psychiatry & Neurology Psychiatry; ATTEND Psychiatry & Neurology Psychiatry
DX: F39 Unspecified mood [affective] disorder (principal); F29 Unspecified psychosis not due to a substance or known physiological condition; F32.9 Major depressive disorder, single episode, unspecified; R45.851 Suicidal ideations; F41.9 Anxiety disorder, unspecified; F63.0 Pathological gambling; B86 Scabies; E66.3 Overweight; N39.41 Urge incontinence; D72.819 Decreased white blood cell count, unspecified; T39.1X2A Poisoning by 4-Aminophenol derivatives, intentional self-harm, initial encounter; Z59.0 Homelessness; Z88.0 Allergy status to penicillin; Z90.49 Acquired absence of other specified parts of digestive tract; Y92.89 Other specified places as the place of occurrence of the external cause; Z68.33 Body mass index [BMI] 33.0-33.9, adult

== ENCOUNTER 2022-03-15 11:42 | Inpatient (IN) | payer BC, MEDICAID ==
[~2022-03-15] VITALS: Ht 157.5 cm; Wt 87.1 kg
[~2022-03-15 11:42] MED LIST changes: +LURA40TA2 PO; +OXYB5TAB16 PO; -PERM60CR4 TP; +TRAZ-251 PO
[2022-03-15 12:40] LABS: CLARITY,URINE CLEAR (Clear); GLUCOSE, URINE NEGATIVE (Neg); KETONES,URINE NEGATIVE (Neg); LEUKOCYTE ESTERASE ,URINE NEGATIVE (Neg); NITRITES, URINE NEGATIVE (Neg); OCCULT BLOOD,URINE NEGATIVE (Neg); PROTEIN,URINE NEGATIVE (Neg); UROBILINOGEN,URINE 0.2 E.U/dL (0.2-1.0)
[2022-03-15 12:42] LABS: COLOR,URINE STRAW (Yellow); UA COLLECTION TYPE CLN CATCH MIDSTREAM
[2022-03-15 12:59] LABS: URINE AMPHETAMINE SCREEN NEGATIVE (Neg); URINE BARBITUATE SCREEN NEGATIVE (Neg); URINE BENZODIAZEPINES SCREEN NEGATIVE (Neg); URINE CANNABINOID SCREEN NEGATIVE (Neg); URINE COCAINE SCREEN NEGATIVE (Neg); URINE METHADONE SCREEN NEGATIVE (Neg); URINE OPIATE SCREEN NEGATIVE (Neg); URINE PHENCYCLIDINE SCREEN NEGATIVE (Neg)
[2022-03-15 13:23] LABS: BASOPHILS # (AUTO) 0.1 X10'3 (0-0.2); BASOPHILS % (AUTO) 0.8 % (0-1); EOSINOPHILS # (AUTO) 0.1 X10'3 (0-0.9); EOSINOPHILS % (AUTO) 1.1 % (0-6); HEMATOCRIT 41.4 % (35.0-45.0); HEMOGLOBIN 13.9 g/dl (12.0-16.0); LYMPHOCYTES # (AUTO) 2.6 X10'3 (1.1-4.8); MEAN CORPUSCULAR HEMOGLOBIN 30.5 PG (27.0-31.0); MEAN CORPUSCULAR HGB CONC 33.6 g/dL (33.0-36.5); MEAN CORPUSCULAR VOLUME 90.7 FL (78-98); MEAN PLATELET VOLUME 7.6 FL (7.4-10.4); MONOCYTES # (AUTO) 0.8 X10'3 (0-0.9); MONOCYTES % (AUTO) 7.9 % (2-12); NEUTROPHILS # (AUTO) 7.1 X10'3 (1.8-7.7); NEUTROPHILS % (AUTO) 66.2 % (42-75); PLATELET COUNT 387 X10'3 (140-440); RED BLOOD COUNT 4.57 X10'6 (4.20-5.60); RED CELL DISTRIBUTION WIDTH 13.4 % (11.5-14.5); WHITE BLOOD COUNT 10.7 X10'3 (4.5-11.0)
[2022-03-15 13:31] LABS: ALANINE AMINOTRANSFERASE 23 U/L (12-78); ALBUMIN 4.1 G/DL (3.4-5.0); ALBUMIN/GLOBULIN RATIO 0.9 (1.1-1.5); ALKALINE PHOSPHATASE 123 IU/L (46-116); ANION GAP 9 (8-16); ASPARTATE AMINO TRANSFERASE 10 U/L (10-37); BILIRUBIN,TOTAL 0.7 MG/DL (0.1-1.0); BLOOD UREA NITROGEN 3 MG/DL (7-18); CALCIUM 9.8 MG/DL (8.5-10.1); CHLORIDE 105 MMOL/L (99-107); GLUCOSE 115 MG/DL (70-104); POTASSIUM 3.7 MMOL/L (3.5-5.1); SODIUM 141 MMOL/L (135-145); TOTAL CARBON DIOXIDE 26.7 MMOL/L (24-32); TOTAL PROTEIN 8.6 G/DL (6.4-8.2)
[2022-03-15 13:44] LABS: BUN/CREATININE RATIO 4.1 (6.6-38.0); CREATININE 0.73 MG/DL (0.40-0.90); eGFR 90 ML/MIN
[2022-03-15 14:26] LABS: ACETAMINOPHEN < 2.0 UG/ML (10-30)
--- NOTE | 2022-03-15 15:25 | NUR ---
PT IS IN ROOM EATING. RESPIRATIONS APPEAR EVEN AND UNLABORED. NO SIGNS OR SYMPTOMS OF DISTRESS NOTED. WILL CONTINUE TO MONITOR.
--- NOTE | 2022-03-15 16:26 | NUR ---
PT IS IN BED RESTING WITH EYES CLOSED. RESPIRATIONS APPEAR EVEN AND UNLABORED. NO SIGNS OR SYMPTOMS OF DISTRESS NOTED. WILL CONTINUE TO MONITOR.
--- NOTE | 2022-03-15 19:09 | NUR ---
One to one with the patient who appeared tired but anxious. She stated that prior to admit and while in her car in the parking lot she consumed ETOH. She denied that she is chronically drinking and stated that in the past month she has only drank approximately 3 times. She denies history of withdrawals. 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 She left her home 2 days ago and has been traveling [facility] before finally coming to [facility] for help. She stated that she is very stressed out and is concerned about loosing her housing because she cannot pay her rent, she owes money for family members that she can't pay back. She stated that she has a gambling addiction and that is why she is having financial difficulties. She stated that she gets a monthly injection but cannot recall what the name was. She has been up for several days and unable to sleep. She is having poor concentration and focus. She has not showered in 5 days. She has significant anxiety.
--- NOTE | 2022-03-15 19:26 | NUR ---
PACKET SENT TO [facility]
[2022-03-15 19:28] LABS: ETHANOL < 0.010 GM/DL (0.0-0.010)
--- NOTE | 2022-03-15 21:06 | NUR ---
The patient is resting on her bed
--- NOTE | 2022-03-15 21:52 | NUR ---
The patient is resting on her bed
--- NOTE | 2022-03-15 23:00 | NUR ---
The patient appears to be sleeping
--- NOTE | 2022-03-16 01:03 | NUR ---
The patient appears to be sleeping
--- NOTE | 2022-03-16 03:13 | NUR ---
The patient appears to be sleeping
--- NOTE | 2022-03-16 05:03 | NUR ---
The patient appeared to have slept well during the night
--- NOTE | 2022-03-16 07:00 | NUR ---
Pt sleeping comfortably, respirations even and unlabored.
--- NOTE | 2022-03-16 09:00 | NUR ---
One on one with patient to assess suicidal thoughts and mood. Pt is plesant on greeting. Pt had no scheduled medications. Pt presents with a constricted affect. Pt currently denies suicidal thoughts, A/VH. Pt is concerned that she is going to lose her home, she is behind rent for two months. Pt wants to go back home to [place], but states she doesn't have any gas money. Mental health clinician is working on a safety plan. Pt states she doesn't want to go to a psych facility. Pt is prescribed TENORIO Aristada, pt states she has received her monthly dose. Pt's mental health is followed by a provider at [facility] in [place].
--- NOTE | 2022-03-16 10:00 | NUR ---
If pt. is discharged, these are the contacts we have for the pt. to pick her up from the hospital: Hannah - [phone] Miley - [phone]
--- NOTE | 2022-03-16 11:05 | NUR ---
Pt lying in bed watching T.V. Mental health clinician notifiying pt she is being placed on a hold for DTS for overdose on OTC medication. Clinician was unable to safety plan with friends or relatives.
[2022-03-16] MEDS ORDERED: ARIP10642 IM (12:58)
--- NOTE | 2022-03-16 13:28 | NUR ---
Pt resting comfortably with eyes closed, respirations even and unlabored.
--- NOTE | 2022-03-16 15:30 | NUR ---
Pt is resting comfortably with eyes closed, respirations even and unlabored.
--- NOTE | 2022-03-16 17:30 | NUR ---
Pt on phone talking to a friend, she told typewriter tester "he can come pick me up on the 5th." Spring Encaser explained to pt that she was on a 72-hour hold and [facility]. Pt has no insight into why she is here. Pt left [place], has been gambling and now has no money. She attempted suicide by taking OTC Tylenol. Pt is upset and teaful thinking she may lose her job. 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
--- NOTE | 2022-03-16 19:28 | NUR ---
The patient has been awake and restless at the bedside. She appears tired and depressed. Her affect is blunted. She was made aware of the plan of care. She is eating well. She is independant in her care of ADLs.
[2022-03-16] MEDS ORDERED: temazepam 15mg capsule PO ONE (20:10)
--- NOTE | 2022-03-16 20:43 | NUR ---
The patient verbalized that she was very concerned that she would not be able to sleep. Discussed with Dr. Angulo and orders received. The patient is currently watching TV.
--- NOTE | 2022-03-16 22:11 | NUR ---
The pathient appears to be sleeping
--- NOTE | 2022-03-16 23:00 | NUR ---
The patient appears to be sleeping
--- NOTE | 2022-03-17 00:44 | NUR ---
The patient appears to be sleeping
--- NOTE | 2022-03-17 02:13 | NUR ---
The patient appeared to be sleeping
--- NOTE | 2022-03-17 04:02 | NUR ---
The patient appears to be sleeping
--- NOTE | 2022-03-17 05:16 | NUR ---
The patient appeared to have slept well during the night
--- NOTE | 2022-03-17 07:03 | NUR ---
Pt sleeping comfortably, respirations even and unlabored.
--- NOTE | 2022-03-17 08:54 | NUR ---
One on one with pt to assess SI and mood. Pt continues to deny suicidal thoughts "I just want to go home." "I need to figure out how to get my life back together." Pt minimizes the fact she took an unknown number of Tylenol in attempt to kill herself. Pt is unsure of how many she took - tox was negative. Pt denies A/VH. Pt was asked if she wanted to contact her employer, she states she will when she gets upstairs to [facility].
--- NOTE | 2022-03-17 09:25 | NUR ---
Called pt's healthcare provider [facility] in [place]. Spoke with law office receptionist she will fax pt's current med rec. Addendum: 03/17/22 at 0927 by LUCIO PT'S LAST ARISTADA INJECTION WAS 02/25/22. WILL UPDATE DOSE WHEN FAX IS RECEIVED.
[2022-03-17] MEDS ORDERED: acetaminophen 325mg tablet PO PRN ×2 (09:50)
[2022-03-17] MEDS ORDERED: mag hydrox/Alum hydrox/simeth 30ml oral suspension PO PRN (09:50)
[2022-03-17] MEDS ORDERED: magnesium hydroxide 30ml (MOM) UD suspension PO PRN (09:50)
[2022-03-17] MEDS ORDERED: loperamide 2mg capsule PO PRN (09:50)
[2022-03-17] MEDS ORDERED: NICOTINE POLACRILEX 2 MG LOZENGE BC PRN (09:50)
[2022-03-17 12:21] VITALS: BP 105/72
--- NOTE | 2022-03-17 15:47 | NUR ---
ADMISSION NOTE: Patient admitted on a 5150 for danger to self following ingestion of a handful of over te counter pain medication. Patient is unable to safety plan, feels helpless, hopeless, fearful of eviction and loss of employment due to gambling addiction. Past history of suicide attempts.
[2022-03-17] MEDS ORDERED: HYDR50CA5 PO (17:04)
[2022-03-17] MEDS ORDERED: QUET100T34 PO (17:04)
[2022-03-17 19:32] VITALS: BP 125/65
--- NOTE | 2022-03-17 23:35 | NUR ---
Nursing Progress Note: Problem: Patient admitted on a 5150 for danger to self following ingestion of a handful of over te counter pain medication. Patient is unable to safety plan, feels helpless, hopeless, fearful of eviction and loss of employment due to gambling addiction. Past history of suicide attempts. Intervention: Provided with a safe and therapeutic environment, clear communication, active listening and positive encouragement. Response: Pt was in her room at change of shift. Pt is depressed, continues to endorse s/i. Pt fears she is going to be evicted because she has missed paying her rent due to gambling addiction. Pt remained in her room resting for duration of shift. Plan: Patient continues to require crisis interruption and stabilization with medication management and monitoring in a safe and therapeutic environment.
[2022-03-18 07:54] LABS: HEMOGLOBIN A1C 5.2 % (4.5-6.2)
[2022-03-18 08:00] VITALS: BP 107/65
[2022-03-18] MEDS: nicotine 21mg patch - 24 hr TD SCH (08:00)
[2022-03-18 08:05] LABS: CHOL/HDL RATIO 4.4 (0.00-4.99); CHOLESTEROL 188 MG/DL (0-200); HDL CHOLESTEROL 43 MG/DL (35-60); LDL CHOLESTEROL 121 MG/DL (50-100); TRIGLYCERIDES 222 MG/DL (20-135)
--- NOTE | 2022-03-18 17:26 | NUR ---
Nursing Progress Note: Problem: Patient admitted on a 5150 for danger to self, following ingestion of a handful of over the counter pain medication. Patient is unable to safety plan, feels helpless, hopeless, fearful of eviction and loss of employment due to gambling addiction. Past history of suicide attempts. Intervention: Provided with a safe and therapeutic environment, clear communication, active listening and positive encouragement. Response: Patient slept until breakfast. She got up and came to the community room and ate. She has no scheduled meds, except for a Nicotine patch, but she says that she doesnt smoke. Patient denies MH symptoms except for Depression. She has the look of being paranoid. Patient does not remain still for long, as she goes back and forth from her room to the community room. She has been concerned, wondering all day whether her doctor has found what medications to put her on. She has some real concerns about losing her housing and her job, due to her gambling issues. Plan: Patient continues to require crisis interruption and stabilization with medication management and monitoring in a safe and therapeutic environment.
--- NOTE | 2022-03-18 17:37 | NUR ---
Amalia is a 36 y/o female who was placed on 5150 for danger to self at [facility] after she self-presented to the ER with complaints of suicidal ideation. She reported she had overdosed on 14-17 OTC sleep medication in a suicide attempt. This is Amalia's second admission to [facility] (previous admit 12/2019). She reported she had been living in [place] and fled from her home to entially escape her problems. She reported she was headed to [facility] to kill herself so she could be near nature. The previous [facility] admit she had overdosed in her car in [place] with similar complaints. Amalia reported she is afraid she is going to lose her housing (rents a room in a "healing house") due to being late on rent. She reported she blew her last paycheck at the casino and now cannot pay rent. 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 Amalia reported her aunt in [place] is going to send her money so she feels relieved she can have money to drive back to [place] upon discharge. Amalia was hoping to acquire some sort of social assistance while in the hospital. Educated her on the limitations and the purpose of her hospitalization. Encouraged her to get treatment for her gambling addiction and to face her problems vs running from them. She was open to this feedback. Provided Amalia with the phone number to [facility] where she has been getting mental health support. Encouraged her to call her case consultant, Delilah, to see if they can offer her support. JOHN Hannon Addendum: 03/18/22 at 1738 by Babita Malik Amended: Links added.
[2022-03-18 19:49] VITALS: BP 120/66
[2022-03-18] MEDS: ARIPIPRAZOLE 10 MG TABLET PO SCH (20:54)
[2022-03-18] MEDS: traZODone 50mg tablet PO SCH (20:54)
--- NOTE | 2022-03-18 22:35 | NUR ---
Nursing Progress Note: Problem: Patient admitted on a 5150 for danger to self, following ingestion of a handful of over the counter pain medication. Patient is unable to safety plan, feels helpless, hopeless, fearful of eviction and loss of employment due to gambling addiction. Past history of suicide attempts. Intervention: Provided with a safe and therapeutic environment, clear communication, active listening and positive encouragement. Response: Pt was in bed at change of shift. Pt states she is ready to home and denies s/i. Pt reports "My sister sent me a bunch of money so I can go home now." Pt sits quietly in her room during the evening and requests prn for sleep. pt reports she woke up often during the night and went back to sleep and didnt feel like she slept well. Pt started abilify tonight and also received prn trazodone at HS. Plan: Patient continues to require crisis interruption and stabilization with medication management and monitoring in a safe and therapeutic environment.
[2022-03-19 08:00] VITALS: BP 103/55
[2022-03-19] MEDS: nicotine 21mg patch - 24 hr TD SCH (08:00)
--- NOTE | 2022-03-19 17:27 | NUR ---
Nursing Progress Note: Problem: Patient admitted on a 5150 for danger to self, following ingestion of a handful of over the counter pain medication. Patient is unable to safety plan, feels helpless, hopeless, fearful of eviction and loss of employment due to gambling addiction. Past history of suicide attempts. Intervention: Provided with a safe and therapeutic environment, clear communication, active listening and positive encouragement. Response: Patient was up for breakfast. She has no scheduled medications in AM. She reports that shes no longer suicidal and wants to go home. Its not known if she has a place to return to as she hasnt paid rent due to her gambling. Its also not known if she has called her employer to see if she still has a job. Patient has been asked, but doesnt seem to understand the questions. They need to be y/n questions. Patient just wants to leave, but doesnt appear to be any different than when she got here. She denies SI, but if she goes back, she will still have the same issues that arent resolved. Patient was concerned that her car might have been towed, but I located it in the main parking lot. Plan: Patient continues to require crisis interruption and stabilization with medication management and monitoring in a safe and therapeutic environment.
[2022-03-19] MEDS ORDERED: naltrexone 50mg tablet PO ONE (17:35)
[2022-03-19 19:31] VITALS: BP 120/64
[2022-03-19] MEDS: traZODone 50mg tablet PO SCH (20:22)
[2022-03-19] MEDS: ARIPIPRAZOLE 10 MG TABLET PO SCH (20:22)
--- NOTE | 2022-03-19 23:25 | NUR ---
Nursing Progress Note: Problem: Patient admitted on a 5150 for danger to self, following ingestion of a handful of over the counter pain medication. Patient is unable to safety plan, feels helpless, hopeless, fearful of eviction and loss of employment due to gambling addiction. Past history of suicide attempts. Intervention: Provided with a safe and therapeutic environment, clear communication, active listening and positive encouragement. Response: Pt was in her room at change of shift. She was given her evening medication and reports she is doing well, medicine is working and she wants to go home. Pt states she is hoping she can leave tomorrow but thinks thursday is ok too. Pt denies s/i, a/vh. Pt spent time resting in her room and walks in the hallway. Pt is compliant with HS meds, requested prn trazodone stating it worked well for her sleep last night. Plan: Patient continues to require crisis interruption and stabilization with medication management and monitoring in a safe and therapeutic environment.
[2022-03-20 08:00] VITALS: BP 109/53
[2022-03-20] MEDS: nicotine 21mg patch - 24 hr TD SCH (08:00)
[2022-03-20] MEDS ORDERED: naltrexone 50mg tablet PO SCH (08:00)
--- NOTE | 2022-03-20 10:03 | NUR ---
Initial: Pt admitted w/ suicidal ideations per EMR. Currently on Regular diet w/ mostly 100% intake of meals meeting est needs at this time. LBM 03/18. No nutrition intervention implemented at this time, will continue to monitor. Recs; 1. Continue Regular diet as tolerated 2. Bowel care PRN 3. Weekly wts Addendum: 03/20/22 at [address] Amended: Links added.
--- NOTE | 2022-03-20 17:39 | NUR ---
Nursing Progress Note: Problem: Patient admitted on a 5150 for danger to self, following ingestion of a handful of over the counter pain medication. Patient is unable to safety plan, feels helpless, hopeless, fearful of eviction and loss of employment due to gambling addiction. Past history of suicide attempts. Intervention: Provided with a safe and therapeutic environment, clear communication, active listening and positive encouragement. Response: Patient was compliant with her medication this morning. She had expected to discharge today, but will stay voluntarily another week until her medications are optimized. She has started Naltrexone last night, along with Abilify. They will need some time to become effective. She understands and is willing. Plan: Patient continues to require crisis interruption and stabilization with medication management and monitoring in a safe and therapeutic environment.
[2022-03-20 20:03] VITALS: BP 131/92
[2022-03-20] MEDS: traZODone 50mg tablet PO SCH (20:39)
[2022-03-20] MEDS: ARIPIPRAZOLE 10 MG TABLET PO SCH (20:40)
--- NOTE | 2022-03-21 00:16 | NUR ---
Nursing Progress Note: Problem: Patient admitted on a 5150 for danger to self, following ingestion of a handful of over the counter pain medication. Patient is unable to safety plan, feels helpless, hopeless, fearful of eviction and loss of employment due to gambling addiction. Past history of suicide attempts. Intervention: Provided with a safe and therapeutic environment, clear communication, active listening and positive encouragement. Response: Pt was observed on the unit socializing with peers and watching TV. She is pleasant on interview and denies AH/VH/SI/HI at this time. She states her day went well and she is feeling hopeful. She takes HS medication without issue and falls asleep after snack. Plan: Patient continues to require crisis interruption and stabilization with medication management and monitoring in a safe and therapeutic environment.
[2022-03-21] MEDS: nicotine 21mg patch - 24 hr TD SCH ×2 (07:58→08:00)
[2022-03-21] MEDS ORDERED: naltrexone 50mg tablet PO SCH (08:00)
[2022-03-21 08:40] VITALS: BP 112/65
[2022-03-21] MEDS ORDERED: NICO-907 BC (12:51)
[2022-03-21] MEDS ORDERED: TRAZ-251 PO (12:51)
[2022-03-21] MEDS ORDERED: NALT50TA PO (12:51)
[2022-03-21] MEDS ORDERED: ARIP10TA15 PO (12:51)
--- NOTE | 2022-03-21 15:15 | NUR ---
Discharge Note: Follow up and paperwork reviewed with the patient who is agreeable to discharge home to self-care. Escorted off the unit by staff with all of her belongings at 13:30. Patient to drive herself home. Discharged with the following instructions: Follow-Up: Patient has been scheduled/referred to the following providers for post-hospital discharge and aftercare treatment. Primary Care Provider: Appointment: 03/28/22 at 10 AM with ABDOUL Goode [address] [place] [address] Therapist: It is recommended that you follow up with a therapist. Discharge Address: [address] [place] [address] Transportation: Self Patient given community crisis services information and National suicide hotline handout. 24 hour crisis line: [phone]
== END 2022-03-21 13:30 | disposition home or self-care (01) | DRG 881 ==
LOC: ER 11:43 → ADULT MH 03-17 09:10
PROVIDERS: ADMIT Psychiatry & Neurology Psychiatry; ATTEND Psychiatry & Neurology Psychiatry
DX: F32.9 Major depressive disorder, single episode, unspecified (principal); F63.9 Impulse disorder, unspecified; Z20.822 Contact with and (suspected) exposure to COVID-19; T50.902A Poisoning by unspecified drugs, medicaments and biological substances, intentional self-harm, initial encounter; Z90.49 Acquired absence of other specified parts of digestive tract; Z56.0 Unemployment, unspecified; Z88.0 Allergy status to penicillin; Y92.89 Other specified places as the place of occurrence of the external cause
CPT/HCPCS: 36415; 80053; 80061; 80305; 80320; 80329; 81003; 83036; 84443; 85025; 87081; 87811; 99285